=== PATIENT | male | born 1990 | race Caucasian/White ===

== ENCOUNTER 2020-03-05 22:22 | Emergency (ER) | payer SELFPAY ==
[2020-03-05 23:06] VITALS: BP 139/81
--- NOTE | 2020-03-05 23:37 | XRay Report ---
CHEST 1 VIEW INDICATION: Chest pain. COMPARISON: None. FINDINGS: Support devices: None. Heart: Normal. Lungs/Pleura: No acute pulmonary or pleural findings. IMPRESSION: 1. No acute findings. Signer Name: Prakash Mejia MD Signed: 03/05/2020 11:33 PM Workstation Name: [id number]
--- NOTE | 2020-03-06 00:19 | Emergency Department Report ---
ED General Adult HPI - General Chief complaint: Headache Stated complaint: HEADACHE PUI?: Yes Time Seen by Provider: 03/06/20 00:17 Source: patient, EMS ( EMS documentation not available at time of chart dictation ), RN notes reviewed Mode of arrival: Ambulatory Limitations: No Limitations - History of Present Illness Initial comments: The entire history and physical examination, I had on complete personal protective equipment. The patient is a 29-year-old gentleman. He is not known to myself previously. 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 He presents to the ER with multiple complaints. His first complaint is headache. The headache is frontal. The headache started 3 to 4 days ago. Headache is not sudden or thunderclap in nature. The headache is not maximal in intensity at onset. Headache is not accompanied by vomiting, fever. The headache is worse 3 to 4 days later. Question subjective fever. No neck pain. No neck stiffness. Describes intermittent "blurry" vision in his right eye, which is painless, does not radiate anywhere, does not have exacerbating or relieving factors, and is resolved. Positive exposure to COVID. Positive loss of taste, smell. Denies cough. Also states "anxiety", associated with central chest pressure, started over 24 hours ago, which does not radiate to the back, arms or neck, not associate with vomiting, diaphoresis, or exertional shortness of breath, denies DVT and pulmonary embolism risk factors, denies homicidality and suicidality. He also requests for refill on some medications; Depakote, 750 daily, Remeron, 30 mg daily, and BuSpar, unknown dose. He was recently released from incarceration without his medication prescriptions -: Gradual, days(s) Location: head, chest Consistency: intermittent Improves with: none Worsens with: none - Related Data Previous Rx's Medication Instructions Recorded Last Taken Type Acetaminophen [Non-Aspirin Extra 500 mg PO Q6HR PRN #30 tablet 03/06/20 Unknown Rx Strength] Albuterol Sulfate [Proair 90 mcg IH Q4HR PRN #2 aer.pow.ba 03/06/20 Unknown Rx Respiclick] Metoclopramide [Reglan] 10 mg PO QID PRN #30 tablet 03/06/20 Unknown Rx Mirtazapine [Remeron 30mg TAB] 30 mg PO QHS #15 tablet 03/06/20 Unknown Rx Valproic Acid [Depakene] 750 mg PO ONCE #45 capsule 03/06/20 Unknown Rx Allergies Allergy/AdvReac Type Severity Reaction Status Date / Time ibuprofen [From Motrin] Allergy Unknown Verified 03/05/20 22:51 ED Review of Systems ROS: Stated complaint: HEADACHE Other details as noted in HPI Constitutional: denies: see HPI Eyes: vision change. denies: eye pain, eye discharge ENT: congestion Respiratory: denies: wheezing Cardiovascular: chest pain. denies: syncope Gastrointestinal: denies: abdominal pain Genitourinary: denies: dysuria Musculoskeletal: myalgia Neurological: headache. denies: weakness, numbness, paresthesias, confusion, abnormal gait, vertigo Psychiatric: denies: homicidal thoughts, suicidal thoughts ED Past Medical Hx - Past Medical History Previous Medical History?: Yes Hx of Cancer: Yes (retinol blastoma) Hx Psychiatric Treatment: Yes (bipolar) Additional medical history: heart murmur - Surgical History Past Surgical History?: Yes Additional Surgical History: metal plate to head and left glass eye. - Social History Smoking Status: Never Smoker Substance Use Type: None - Medications Home Medications: Home Medications Medication Instructions Recorded Confirmed Last Taken Type Acetaminophen [Non-Aspirin Extra 500 mg PO Q6HR PRN #30 tablet 03/06/20 Unknown Rx Strength] Albuterol Sulfate [Proair 90 mcg IH Q4HR PRN #2 aer.pow.ba 03/06/20 Unknown Rx Respiclick] Metoclopramide [Reglan] 10 mg PO QID PRN #30 tablet 03/06/20 Unknown Rx Mirtazapine [Remeron 30mg TAB] 30 mg PO QHS #15 tablet 03/06/20 Unknown Rx Valproic Acid [Depakene] 750 mg PO ONCE #45 capsule 03/06/20 Unknown Rx ED Physical Exam - General Limitations: No Limitations General appearance: alert, in no apparent distress - Head Head exam: Present: atraumatic, normocephalic - Eye Eye exam: Present: normal appearance, PERRL, EOMI, other (Left eye is prosthetic. Right eye within normal limits. Visual acuity intact to finger counting, color perception, reading at a close distance). Absent: nystagmus - ENT ENT exam: Present: normal exam, normal orophraynx, mucous membranes moist, normal external ear exam - Neck Neck exam: Present: normal inspection, full ROM. Absent: tenderness, meningismus - Respiratory Respiratory exam: Present: normal lung sounds bilaterally. Absent: respiratory distress - Cardiovascular Cardiovascular Exam: Present: regular rate, normal rhythm, normal heart sounds. Absent: bradycardia, tachycardia, irregular rhythm, systolic murmur, diastolic murmur, rubs, gallop - GI/Abdominal GI/Abdominal exam: Present: soft, normal bowel sounds. Absent: distended, tenderness, guarding, rebound, rigid, pulsatile mass - Rectal Rectal exam: Present: deferred - Extremities Exam Extremities exam: Present: normal inspection, full ROM, normal capillary refill, other (2+ pulses noted in the bilateral upper and lower extremities. There is no palpable cord. negative Homans sign. Muscular compartments are soft. The pelvis is stable.). Absent: pedal edema, calf tenderness - Back Exam Back exam: Present: normal inspection, full ROM. Absent: tenderness, CVA tenderness (R), CVA tenderness (L), paraspinal tenderness, vertebral tenderness - Neurological Exam Neurological exam: Present: alert, oriented X3, normal gait, other (There is no facial droop. The tongue is midline. Extraocular movements are intact bilaterally. There is 5 out of 5 strength in bilateral upper and lower extremities. Sensation is intact to light touch bilateral upper and lower extremities. There is no past-pointing. There is no pronator drift. There is normal [id number]. There is a normal gait.). Absent: motor sensory deficit - Psychiatric Psychiatric exam: Absent: homicidal ideation, suicidal ideation - Skin Skin exam: Present: warm, dry, intact, normal color. Absent: rash ED Course Vital Signs 03/05/20 22:44 Temperature 98.3 F Pulse Rate 87 Respiratory 18 Rate Blood Pressure 139/81 O2 Sat by Pulse 98 Oximetry - Reevaluation(s) Reevaluation #1: 03/06/20 02:49 CT scan of the brain is negative for acute findings ED Medical Decision Making - Lab Data Result diagrams: 03/06/20 01:16 03/06/20 01:16 Vital Signs 03/05/20 22:44 Temperature 98.3 F Pulse Rate 87 Respiratory 18 Rate Blood Pressure 139/81 O2 Sat by Pulse 98 Oximetry Lab Results 03/06/20 03/06/20 03/06/20 Range/Units 01:16 01:16 01:16 WBC 7.0 (4.5-11.0) K/mm3 RBC 4.35 (3.65-5.03) M/mm3 Hgb 14.6 (11.8-15.2) gm/dl Hct 42.2 (35.5-45.6) % MCV 97 H (84-94) fl MCH 34 H (28-32) pg MCHC 35 H (32-34) % RDW 17.9 H (13.2-15.2) % Plt Count 226 (140-440) K/mm3 PT 14.2 (12.2-14.9) Sec. INR 1.12 (0.87-1.13) Sodium 139 (137-145) mmol/L Potassium 4.2 (3.6-5.0) mmol/L Chloride 100.8 (98-107) mmol/L Carbon Dioxide 26 (22-30) mmol/L Anion Gap 16 mmol/L BUN 15 (9-20) mg/dL Creatinine 0.9 (0.8-1.5) mg/dL Estimated GFR > 60 ml/min BUN/Creatinine Ratio 17 % Glucose 99 (75-100) mg/dL Calcium 10.1 (8.4-10.2) mg/dL Magnesium 2.20 (1.7-2.3) mg/dL Total Creatine Kinase 533 H (55-170) units/L Troponin T 0.010 (0.00-0.029) ng/mL Valproic Acid (50-100) ug/mL 03/06/20 Range/Units 01:16 WBC (4.5-11.0) K/mm3 RBC (3.65-5.03) M/mm3 Hgb (11.8-15.2) gm/dl Hct (35.5-45.6) % MCV (84-94) fl MCH (28-32) pg MCHC (32-34) % RDW (13.2-15.2) % Plt Count (140-440) K/mm3 PT (12.2-14.9) Sec. INR (0.87-1.13) Sodium (137-145) mmol/L Potassium (3.6-5.0) mmol/L Chloride (98-107) mmol/L Carbon Dioxide (22-30) mmol/L Anion Gap mmol/L BUN (9-20) mg/dL Creatinine (0.8-1.5) mg/dL Estimated GFR ml/min BUN/Creatinine Ratio % Glucose (75-100) mg/dL Calcium (8.4-10.2) mg/dL Magnesium (1.7-2.3) mg/dL Total Creatine Kinase (55-170) units/L Troponin T (0.00-0.029) ng/mL Valproic Acid 2.8 L (50-100) ug/mL - EKG Data -: EKG Interpreted by Ne EKG shows normal: sinus rhythm Rate: normal - EKG Data 03/06/20 02:15 There is no prior EKG available for comparison. Sinus rhythm, 69 bpm, normal axis, normal intervals, high left ventricular voltage/early repolarization. The EKG is abnormal. Age-appropriate variant, not a STEMI - Radiology Data Radiology results: report reviewed, image reviewed Print Report Referring Physician: ED COOPER Patient Name: ELEN MUNOZ Date of : 1990 Sex: Male Report Date: 2020-03-05 Report Status: Finalized Findings [facility] [address] [place] [address] XRay Report Signed Patient: ELEN MUNOZ MR#: [id number] 29 : 1990 Acct:[id number] Age/Sex: 29 / M ADM Date: 03/05/20 Loc: ED Attending Dr: Ordering Physician: DELANEY GAMBOA MD Date of Service: 03/05/20 Procedure(s): XR chest 1V ap Accession Number(s): [id number] cc: ED MD COOPER Fluoro Time In Minutes: CHEST 1 VIEW INDICATION: Chest pain. COMPARISON: None. FINDINGS: Support devices: None. Heart: Normal. Lungs/Pleura: No acute pulmonary or pleural findings. IMPRESSION: 1. No acute findings. Signer Name: Prakash Mejia MD Signed: 03/05/2020 11:33 PM Workstation Name: [id number] Transcribed By: Dictated By: Prakash Mejia MD Electronically Authenticated By: Prakash Mejia MD Signed Date/Time: [id number] DD/ 31 TD/TT: - Medical Decision Making Differential diagnosis, including but not limited to: Migraine headache, tension headache, cluster headache, intracranial lesion, COVID, anxiety, pneumonia, costochondritis, pericarditis/myocarditis, medication refill Assessment and plan: 29-year-old gentleman with multiple complaints. Headache, associated with right-sided binocular intermittent blurry vision, now resolved. GCS 15, NIH score of 0, right-sided pupil reacts to light, without direct or consensual photophobia, extraocular movements are intact without evidence of internuclear ophthalmoplegia, cannot assess for afferent pupillary defect as left eye is prosthetic. Visual acuity intact to finger counting, color perception, reading at a close distance No evidence of cloudy cornea. There is no visual field cut on direct confrontation. CT scan of the brain negative for acute pathology. Neurologic exam benign and within normal limits. Patient treated supportively and symptomatically. He can follow-up for this as an outpatient with a primary care doctor, forest nursery supervisor or neurologist. Complaint of chest pain, now resolved. No pulmonary embolism or DVT risk factors, low risk by Wells criteria, not tachycardic, tachypneic or hypoxic, PERC negative. EKG benign and unremarkable, troponin negative x1, chest discomfort started over 24 hours ago, resolved, low risk for major adverse cardiac event as per heart score, as per the [employer] clinical policy, myocardial infarction may be ruled out with 1 set of troponins/cardiac enzymes if symptoms present for greater than 8 hours. X-ray of the chest benign and unremarkable. Nonspecific loss of taste and smell, likely COVID. Patient ambulated on room air for 5 minutes, did not significantly desaturate or have any significant symptoms. He was counseled appropriately, and he can follow-up as an outpatient with the primary care doctor for suspected mild case of COVID at this time. Informed patient that we could refill his Remeron and Depakote. Patient is observed in this department for hours without clinical decompensation. He is pleasant, calm and cooperative, not tachycardic, negative troponin, negative CK, not consistent with perimyocarditis. Patient is suitable for follow-up with outpatient primary care at this time Critical care attestation.: If time is entered above; I have spent that time in minutes in the direct care of this critically ill patient, excluding procedure time. ED Disposition Clinical Impression: Suspected 2019 novel coronavirus infection, History of visual disturbance, History of chest pain, History of headache, Medication refill Disposition: DC-01 TO HOME OR SELFCARE Is pt being admited?: No Does the pt Need Aspirin: No Condition: Stable Instructions: COVID-19 Additional Instructions: For complaint of headache and nonspecific blurry vision, please follow-up with an outpatient neurologist or forest nursery supervisor within the next 3 to 5 days. Local neurology includes Dr. Hall. Local ophthalmology includes Dr. Alcantar. As we discussed, the patient most likely has novel coronavirus/COVID. the symptoms of COVID will typically persist 10 to 14 days. There is no cure at this time for COVID. Please make certain to self isolate and self quarantine, follow-up with an outpatient primary care doctor within the next 3 to 5 days, wash hands with soap and water frequently, thoroughly and often, patient may take the prescribed medications as needed and directed. Advance diet and drink plenty of fluids as tolerated. Avoid interactions with the very elderly, very young, and those with chronic medical conditions. Return to the emergency room right away with new pain, worsening pain, migration of pain, projectile vomiting, change in mental status, confusion, inability to tolerate liquid feeds, new, worsened or different symptoms not present on the initial emergency room evaluation. Prescriptions: Mirtazapine [Remeron 30mg TAB] 30 mg PO QHS #15 tablet Valproic Acid [Depakene] 750 mg PO ONCE #45 capsule Acetaminophen [Non-Aspirin Extra Strength] 500 mg PO Q6HR PRN #30 tablet PRN Reason: Pain , Severe (7-10) Albuterol Sulfate [Proair Respiclick] 90 mcg IH Q4HR PRN #2 aer.pow.ba PRN Reason: Wheezing Metoclopramide [Reglan] 10 mg PO QID PRN #30 tablet PRN Reason: Nausea Referrals: PRIMARY CARE, [Primary Care Provider] - 3-5 Days DARIA STARKEY MD [Staff Physician] - 3-5 Days MAURICIO ALCANTAR MD [Staff Physician] - 3-5 Days KIM HALL MD [Staff Physician] - 3-5 Days Forms: Work/School Release Form(ED)
[2020-03-06] MEDS ORDERED: diphenhydrAMINE 25 MG/10 ML ORAL LIQUID PO ONE (01:09)
[2020-03-06] MEDS ORDERED: ACETAMINOPHEN 325 MG TAB PO ONE (01:09)
[2020-03-06] MEDS: METOCLOPRAMIDE 10 MG TAB PO ONE (01:25)
[2020-03-06 01:37] LABS: Hematocrit 42.2 % (35.5-45.6); Hemoglobin 14.6 gm/dl (11.8-15.2); Mean Corpuscular HGB Conc 35 % (32-34); Mean Corpuscular Volume 97 fl (84-94); Platelet Count 226 K/mm3 (140-440); Red Blood Count 4.35 M/mm3 (3.65-5.03); Red Cell Distribution Width 17.9 % (13.2-15.2)
[2020-03-06 02:03] LABS: BUN/Creatinine Ratio 17; Blood Urea Nitrogen 15 mg/dL (9-20); Calcium 10.1 mg/dL (8.4-10.2); Hemolysis Index 13
[2020-03-06 02:04] LABS: INR 1.12 (0.87-1.13)
--- NOTE | 2020-03-06 02:21 | Cat Scan Report ---
CT HEAD WITHOUT CONTRAST INDICATION: Pt complains of headache with blurry vision, but now resolved. TECHNIQUE: All CT scans at this location are performed using CT dose reduction for ALARA by means of automated e xposure control. COMPARISON: None available. FINDINGS: HEMORRHAGE: None. EXTRA-AXIAL SPACES: Normal in size and morphology for the patient's age. VENTRICULAR SYSTEM: Normal in size and morphology for the patient's age. BRAIN PARENCHYMA: No acute findings. MIDLINE SHIFT OR HERNIATION: None. ORBITS: Left globe prosthesis is noted. SOFT TISSUES OF HEAD: Normal. CALVARIUM: No acute findings. There has been prior left parietal craniotomy. VISUALIZED PARANASAL SINUSES AND MASTOID AIR CELLS: Clear. ADDITIONAL FINDINGS: None. IMPRESSION: 1. No acute intracranial abnormality. Signer Name: Prakash Mejia MD Signed: 03/06/2020 2:16 AM Workstation Name: [id number]
== END 2020-03-06 03:14 | disposition home or self-care (01) ==
LOC: ED 22:22
DX: Z20.828 Contact with and (suspected) exposure to other viral communicable diseases (principal); F31.9 Bipolar disorder, unspecified; Z88.6 Allergy status to analgesic agent
CPT/HCPCS: 36415; 70450; 71045; 80048; 80164; 82550; 83735; 84484; 85027; 85610; 93005; Q0163